=== PATIENT | male | born 1990 | race Caucasian/White ===

== ENCOUNTER 2020-11-09 00:38 | Emergency (ER) | payer SELFPAY ==
[~2020-11-09] VITALS: Ht 170.2 cm; Wt 97.5 kg
[2020-11-09 00:40] VITALS: BP 145/78
--- NOTE | 2020-11-09 00:40 | NUR ---
BIBA TAKEN TO BED #4
--- NOTE | 2020-11-09 00:45 | NUR ---
BIBA FROM BAR. PT FOUND PASSED OUT BY BYSTANDERS. PER PT CONSUMED TEQUILA, UNKNOWN AMOUNT. VOMIT FOUND ON PT CLOTHING. PT GROGGY BUT ABLE TO ANSWER QUESTIONS. AOX4. MEDHX- DENIES NKA
--- NOTE | 2020-11-09 02:05 | NUR ---
PT ASLEEP. VISIBLE CHEST RISE AND FALL NOTED. NO S/SX OF DISTRESS NOTED. SAFETY MEASURES IN PLACE, WILL CONTINUE TO MONITOR.
--- NOTE | 2020-11-09 04:19 | NUR ---
PT ASLEEP BUT EASILY AROUSED. NO S/SX OF DISTRESS NOTED. PT KEPT SAFE AND COMFORTABLE. WILL CONTINUE TO MONITOR.
[2020-11-09 05:56] VITALS: BP 105/71
== END 2020-11-09 05:56 | disposition home or self-care (01) ==
LOC: MED 00:38
DX: F10.129 Alcohol abuse with intoxication, unspecified (principal); R41.82 Altered mental status, unspecified
CPT/HCPCS: 99283